=== PATIENT | female | born 1975 | race Caucasian/White ===

== ENCOUNTER 2022-05-01 02:38 | Day surgery (SDC) | payer OTHER, SELFPAY ==
[2022-04-19 13:07] VITALS: BMI 22.4
--- NOTE | 2022-05-01 07:04 | P.HP_ITS ---
History of Present Illness History of Present Illness Consent: Risks, benefits, and alternatives have been discussed and questions answered. Patient agrees to proceed with procedure. Chief complaint: diverticulitis Narrative: Ny Covington is a 46 year old female referred for Colonoscopy because ofa abnormal CT and recent suspicion of diverticulitis, recently treated with antibiotics. she has in fact had multiple episodes of diverticulitis over the last 4 years treated with antibiotics. To her knowledge, none of them have been documented with CT scanning. She states that her prior physician, her work related physician, had told her that broccoli and cauliflower as well as seeds were very bad for diverticular disease into avoid them. Consequently she has been avoiding fiber. Review of Systems 2 Review of Systems: All systems reviewed & are unremarkable except as noted in HPI and below PMFSH Social History Social History Smoking packs per day: 1 Smoking cigarettes per day: 20.0 Years smoked: 15 Smoking pack-years: 15.00 Smoking status: Former smoker Tobacco type: e-cigarettes/vaping Additional smoking assessment comments: quit tobacco only vaping now Alcohol intake: current Drinks per week: 5 Alcohol use details: 4-5drinks/ night -4-5 days/week Living arrangements: with family Spiritual care concerns: No Meds Home Medications and Allergies Home Medications Medication Instructions Recorded Confirmed Type No Home Medications 04/19/22 05/01/22 History Allergies Allergy/AdvReac Type Severity Reaction Status Date / Time No Known Allergies Allergy Mild Verified 05/01/22 10:26 Exam Resp: Auscultation: clear to auscultation bilaterally Cardio: Rate: regular rate Rhythm: regular rhythm GI: GI Palp: Yes Soft to palpation and No Tenderness to palpation present (GI) Assessment and Plan Assessment and plan (1) Diverticulitis: Code(s): K57.92 - Diverticulitis of intestine, part unspecified, without perforation or abscess without bleeding Status: Acute Assessment and Plan: Colonoscopy with possible biopsy or polypectomy or cautery or injection of substances.
[2022-05-01 10:29] VITALS: BP 113/72; PULSE 94; RESP 16; TEMP 36.5; O2SAT 100; BMI 21.7
[2022-05-01] MEDS: LACTATED RINGERS 1,000 ML 150 ML IV CONT ×2 (10:35→11:51)
--- NOTE | 2022-05-01 10:56 | WPDANESEPPF ---
Anes - Initial Pre Proc Eval Procedure: Operation Date: 05/01/22 12:30 Proposed Procedures p Colonoscopy - Hero Branham MD Date/Time: 05/01/22 10:56 Surgeon: Hero Branham MD Pre Op Diagnosis: diverticulitis Patient Data Age: 46 Gender: F Height: 1.65 m Weight: 59.4 kg Last Vital Signs Temp 36.5 C 05/01/22 10:29 Pulse 94 05/01/22 10:29 Resp 16 05/01/22 10:29 BP 113/72 05/01/22 10:29 Pulse Ox 100 05/01/22 10:29 O2 Del Method Room Air 05/01/22 10:29 Allergies Allergy/AdvReac Type Severity Reaction Status Date / Time No Known Allergies Allergy Mild Verified 05/01/22 10:26 Home Medications Medication Instructions Recorded Confirmed Type No Home Medications 04/19/22 05/01/22 History Patient hx anesthesia problems: none Family hx anesthesia problems: none Results Review: All pre-operative results and documents have been reviewed as part of the pre-operative evaluation. [facility] Social History Social History (Updated 05/01/22 @ 10:56 by Finn Batista DO) Smoking packs per day: 1 Smoking cigarettes per day: 20.0 Years smoked: 15 Smoking pack-years: 15.00 Smoking status: Former smoker Tobacco type: e-cigarettes/vaping Additional smoking assessment comments: quit tobacco only vaping now Alcohol intake: current Drinks per week: 5 Alcohol use details: 4-5drinks/ night -4-5 days/week Living arrangements: with family Spiritual care concerns: No Anes - Eval Final PreProcedure Day of Procedure 05/01/22 10:56 Patient weight: normal Heart: regular rate and rhythm Lungs: clear to auscultation and normal air movement Airway: Mallampati scale class II Neurological: alert and oriented Last oral intake: >/= 8 hours ASA classification: II Emergent: no Anesthetic plan: proceed Anesthesia type and monitoring: general GIVS and standard monitoring Results Review: All pre-operative results and documents have been reviewed as part of the pre-operative evaluation. Informed Consent: The patient's anesthetic plan and its attendant risks and benefits were discussed with the patient/family/POA. Questions were solicited and answers provided to the satisfaction of the patient/family/POA.
[2022-05-01 12:00] VITALS: BP 118/80; PULSE 78; RESP 16; O2SAT 100
[2022-05-01 12:10] VITALS: BP 122/83; PULSE 73; RESP 16; O2SAT 100
[2022-05-01 12:20] VITALS: BP 135/79; PULSE 71; RESP 16; O2SAT 100
== END 2022-05-01 12:36 | disposition home or self-care (01) ==
PROVIDERS: PCP Internal Medicine; Visit Provider Internal Medicine Gastroenterology
PROC: 0DJD8ZZ Inspection of Lower Intestinal Tract, Via Natural or Artificial Opening Endoscopic (ICD-10-PCS; CPT 45378; principal; 2022-05-01 12:30)
DX: K57.30 Diverticulosis of large intestine without perforation or abscess without bleeding (principal); Z87.891 Personal history of nicotine dependence
CPT/HCPCS: 45378; J2704; J7120

== ENCOUNTER → 2022-05-29 12:10 | Outpatient (CLI) | payer OTHER, SELFPAY ==
--- NOTE | ~2022-05-29 | MM_ITS ---
EXAMINATION: MM screening dorothy BI w marissa HISTORY: Screening TECHNIQUE: Craniocaudal and mediolateral oblique 3-D tomosynthesis images were obtained and synthetic 2-D images were generated. CAD analysis was submitted and interpreted. COMPARISON: No prior mammogram is available for comparison at this institution. BREAST PARENCHYMAL COMPOSITION: Breast composed of scattered areas of fibroglandular density FINDINGS: There are no suspicious masses, calcifications or architectural distortion in the right carrol ast to suggest malignancy. There is a mass with circumscribed margins and central lucency in the lowe r inner quadrant of the left breast. IMPRESSION: 1. Left breast mass, lower inner quadrant posteriorly. 2. Additional mammographic views and possible breast ultrasound are recommended. BI-RADS Category 0: Incomplete: Needs additional imaging evaluation. Reviewed, dictated and finalized at location A. IMPRESSION: 1. Left breast mass, lower inner quadrant posteriorly. 2. Additional mammographic views and possible breast ultrasound are recommended . BI-RADS Category 0: Incomplete: Needs additional imaging evaluation.
== END ==
PROVIDERS: PCP Internal Medicine; Visit Provider Internal Medicine
DX: Z12.31 Encounter for screening mammogram for malignant neoplasm of breast (principal); R92.8 Other abnormal and inconclusive findings on diagnostic imaging of breast
CPT/HCPCS: 77063; 77067

== ENCOUNTER → 2022-07-11 08:09 | Outpatient (CLI) | payer OTHER, SELFPAY ==
--- NOTE | ~2022-07-11 | MMUS_ITS ---
EXAMINATION: MM diagnostic dorothy LT w marissa, US breast LT limited HISTORY: Left breast mass reported on 05/29/2022 screening mammogram TECHNIQUE: Additional 3-D tomosynthesis images of the left breast were performed and synthetic 2-D im ages were generated. CAD analysis was submitted and interpreted. High resolution targeted left breast ultrasound at 10:00 9 cm from nipple was performed. COMPARISON: 05/29/2022 bilateral screening mammogram FINDINGS: MAMMOGRAPHIC FINDINGS: A largely circumscribed approximately 7.2 x 9 x 12 mm mass is confirmed at the posterior aspect of th e upper inner quadrant of the left breast. ULTRASOUND: 10:00 9 cm from nipple: Parallel circumscribed hypoechoic solid lesion measuring 9.6 x 4.8 x 10 mm, w ithout internal vascularity with suggestion of a fatty hilus. This is likely a benign intramammary ly mph node. Six-month follow-up diagnostic left mammogram and targeted left breast ultrasound examinati on are recommended. IMPRESSION: 1. Probably benign intramammary lymph node 2. 6 month diagnostic left mammogram and targeted left breast ultrasound examination are recommended. BI-RADS category 3, probably benign findings. Reviewed, dictated and finalized at location A. [employer] IMPRESSION: 1. Probably benign intramammary lymph node 2. 6 month diagnostic left mammogram and targeted left breast ultrasound examin ation are recommended. BI-RADS category 3, probably benign findings.
== END ==
PROVIDERS: PCP Internal Medicine; Visit Provider Internal Medicine
DX: R92.8 Other abnormal and inconclusive findings on diagnostic imaging of breast (principal)
CPT/HCPCS: 76642; 77061; 77065; G0279